=== PATIENT | male | born 1940 | race Hispanic/Latino ===

== ENCOUNTER 2017-01-22 16:56 | Day surgery (SDC) | payer MEDICARE, BC ==
[2017-01-20 07:59] VITALS: BMI 29.5
[2017-01-22] MEDS ORDERED: Iohexol 350mg/ml 100 ML ONE ×2 (19:02→20:45)
[2017-01-22] MEDS ORDERED: Midazolam 2 MG/2 ML VIAL ONE ×2 (19:36→20:32)
[2017-01-22] MEDS ORDERED: Promethazine DM 6.25 mg-15 mg/5 ml Syrup PO STA (21:34)
[2017-01-23 00:12] VITALS: TEMP 97.6
[2017-01-23 01:08] VITALS: BP 98/74; PULSE 91; RESP 21
[2017-01-23 16:24] VITALS: O2SAT 95
== END 2017-01-23 00:35 | disposition short-term general hospital (02) ==
LOC: C.CATHLAB 16:56
PROVIDERS: ATTEND Internal Medicine
DX: I25.10 Atherosclerotic heart disease of native coronary artery without angina pectoris (principal); Z95.1 Presence of aortocoronary bypass graft; J44.9 Chronic obstructive pulmonary disease, unspecified; I48.91 Unspecified atrial fibrillation
CPT/HCPCS: 93452; 94770; J0360; J1644; J2250; J3010; Q9967